=== PATIENT | male | born 1935 | race Caucasian/White ===

== ENCOUNTER 2020-01-23 11:54 | Day surgery (SDC) | payer MEDICARE, SELFPAY ==
[2020-01-22 13:40] VITALS: BMI 24.3
[2020-01-23] VITALS (8 sets, daily range): BP systolic 102–166; BP diastolic 57–91; PULSE 64–99; RESP 18; TEMP 36.3–37; O2SAT 96–100
--- NOTE | 2020-01-23 13:36 | FL_ITS ---
PROCEDURE: FL ERCP CLINICAL INDICATION: ABNORMAL DIAGNOSTIC SCAN COMPARISON: No exams were available for comparison FINDINGS: Fluoroscopy time: 3 minutes and 11 seconds There are no previous exams available at this institution for comparison. No international banker exam was performed. Pancreatic duct is visualized with contrast in normal in caliber. A wire is present within the common bile duct with some contrast in the proximal biliary tree. The common bile duct is poorly opacified. Please correlate with fluoroscopic findings. There is a collection of contrast in the right upper quadrant which could be due to gallbladder with stones. It appears a sphincterotomy was performed. IMPRESSION: Status post ERCP. Unremarkable appearing pancreatic duct. Common bile duct is not opacified. Please correlate with fluoroscopic findings Dictated by: Rodney Jacob MD 02/02/2020 20:34 Electronically signed by Rodney Jacob MD in [place] 02/02/2020 20:34
--- NOTE | 2020-01-23 13:57 | P.PN_ITS ---
[facility] Anesthesia Checklist - Patient Identification Patient Identification: Arm Band, Verbal (Name & ) - Structural Data Admitted From: Home Planned Operative Procedure/s: ERCP Consent for Planned Operative Procedure(s) Verified: Yes Verified Documents: Surgical Consent, History and Physical - NPO Status Verified Time NPO: 19:30 - Chart Verification Results Verified: None - Additional verifications Anesthesia Reactions: Yes (PONV) - Airway Assessment C-Spine Mobility Assessed: Yes TMJ Mobility Assessed: Yes Dentition: Dentures-good fit - Neurological Assessment Level of Consciousness: Awake, Alert, Appropriate, Follows Commands Hx Seizures: No Numbness or tingling in extremities: Yes (Left arm numbness) - Anesthesia Plan Anesthesia Risk discussed: Yes Anesthesia Plan: Verified ASA Class: II Anesthesia Type: MAC [facility] History I have reviewed the patient's past medical history: Yes Medical History: Reports:: Asthma, Cancer (skin cancer), Hypertension Denies:: Diabetes Mellitus Type 1, Diabetes Mellitus Type 2, Internal Pacemaker, MRSA, Seizures *Have you ever received a pneumonia vaccine?: Yes *Have you received a flu vaccine this season?: Yes Anesthesia experience/problems:: PONV Other Surgeries: Yes: Cholecystectomy, Hernia Repair, Sinus Surgery. No: Pacemaker Amputation: No Fractures: No - *Social History Educational Level: Completed High School Smoking Status: Unknown if ever smoked Alcohol Intake: never Substance Use Type: denies use *Occupational Status:: retired Housing: house Household Members: none *Travel in the last 8 weeks: None Family Hx:: No significant family history
--- NOTE | 2020-01-23 14:15 | HMH.PROC ---
[facility] Procedure Note Procedure Note:: ERCP procedure Report: Endoscopic retrograde cholangiopancreatography with biliary sphincterotomy, biliary balloon extraction and biliary stent placement Endoscopist: Nico Ring II, MD Referring Physician: Lamberto Morris MD Date of Procedure: January 23, 2020 Equipment: Olympus 180 side viewing endoscope duodenoscope Sedation: MAC sedation Indication: Mr. Mario is an 85-year-old gentleman with generalized abdominal pain and discomfort since early November 2019. He has lost 10 pounds. This is upper but across the mid abdomen and does not radiate. He has had some loss of appetite and nausea. His CT scan of the abdomen and pelvis showed bile duct dilation with 2 common bile duct stones or sludge or mass. Labs in the office did show ALT 37, alkaline phosphatase 312 and total bilirubin 1.1. The patient's amylase and lipase were 61 and 110 respectively (normal). The patient did have a subsequent MRCP that showed a common bile duct measuring 18 mm. There was a filling defect in the distal aspect of the CBD which measured 2 cm x 1.6 cm. ERCP was recommended. Procedure: Prior to the procedure, a history and physical exam was performed, and patient's medications and allergies were reviewed. The risks, benefits and alternatives of the sedation and procedure were discussed with the patient. All questions were answered and informed consent was obtained. The patient was brought to the fluoroscopic radiology room. Patient identification and proposed procedure were verified by the physician and the nurse. The patient was placed in a swimmer's position between left lateral decubitus and prone position and the scope was passed under direct vision. Throughout the procedure, the patient's blood pressure, pulse, and oxygen saturations were monitored continuously. The ERCP was accomplished without difficulty. The patient tolerated the procedure well. Findings: The side-viewing duodenal scope was passed directly into the upper esophagus and advanced to the second portion of the duodenum. The esophagus and stomach were grossly normal. There was some mild reactive gastropathy of the antrum. There was a periampullary diverticulum in the second portion of the duodenum. There was a bulging ampulla. The ampulla was angulated. Both the common bile duct and pancreatic duct were cannulated. The pancreatogram did show a 2 to 3 mm pancreatic duct with filling of the head body and a portion of the tail the gland. There were no strictures or ductular ectasias. The cholangiogram showed a 18 to 20 mm common bile duct with a distal CBD filling defect consistent with a large distal CBD stone with sludge. Initially, a generous biliary sphincterotomy was performed. Next, a 12 mm sweeping balloon was placed above the sludge and stone and most of this was swept out with the smaller balloon. Approximately 5 balloon sweeps yielded mostly semisolid sludge which was yellowish-brown and fragmented stones. After there was complete decompression of the biliary system, a 10 Luxembourger, 5 cm double-pigtail stent was deployed into the biliary system with excellent drainage and decompression. The procedure was then ended. The patient was given Indocin suppository 100 mg per rectum subsequent to ending procedure. Impression: 1. Choledocholithiasis with partial biliary obstruction status post biliary sphincterotomy, balloon extraction and 10 Luxembourger stent placement 2. Normal pancreatogram 3. Periampullary diverticulum Plan: I will discuss the findings with patient and family. I will have the patient return in 10 to 12 weeks with repeat cholangiogram and removal of biliary stent at that time to ensure complete clearance of the common bile duct.
== END 2020-01-23 15:52 | disposition home or self-care (01) ==
LOC: OUTP 11:58
PROVIDERS: Visit Provider Internal Medicine Gastroenterology
DX: K80.51 Calculus of bile duct without cholangitis or cholecystitis with obstruction (principal); K57.90 Diverticulosis of intestine, part unspecified, without perforation or abscess without bleeding; Z79.899 Other long term (current) drug therapy
CPT/HCPCS: 43264; 43274; 74330; C2617

== ENCOUNTER → 2020-04-01 12:54 | Outpatient (CLI) | payer MEDICARE, SELFPAY ==
[2020-04-01 15:34] LABS: Coronavirus 19 IgG Antibody Negative (Negative); Coronavirus 19 IgM Antibody Negative (Negative)
== END ==
PROVIDERS: Visit Provider Internal Medicine Gastroenterology
DX: Z01.818 Encounter for other preprocedural examination (principal); R93.3 Abnormal findings on diagnostic imaging of other parts of digestive tract
CPT/HCPCS: 36415; 86328

== ENCOUNTER 2020-04-02 11:41 | Day surgery (SDC) | payer MEDICARE, SELFPAY ==
[2020-03-29 16:43] VITALS: BMI 22.8
[2020-04-02] VITALS (9 sets, daily range): BP systolic 110–189; BP diastolic 65–99; PULSE 60–80; RESP 18–20; TEMP 36.4–36.8; O2SAT 98–100
--- NOTE | 2020-04-02 13:06 | FL_ITS ---
PROCEDURE: FL ERCP CLINICAL INDICATION: abnormal imaging Choledocholithiasis. Stent placement COMPARISON: FL ERCP from 01/23/2020 FINDINGS: A biliary stent was removed during the exam. Multiple images are submitted. A stone extraction was performed with a basket. There was incomplete filling of the common bile duct. IMPRESSION: Interval stent removal and stone extraction Dictated by: Rodney Jacob MD 04/06/2020 15:47 Electronically signed by Rodney Jacob MD in [place] 04/06/2020 15:47
--- NOTE | 2020-04-02 14:50 | HMH.PROC ---
[facility] Procedure Note Procedure Note:: ERCP procedure Report: Endoscopic retrograde cholangiopancreatography with stent removal and stone/basket extraction Endoscopist: Nico Ring II, MD Referring Physician: Lamberto Morris MD Date of Procedure: April 02, 2020 Equipment: Olympus 180 side viewing endoscope duodenoscope Sedation: MAC sedation Indication: Mr. Mario is an 85-year-old gentleman with an abnormal MRCP and CAT scan previously as well as an elevated alkaline phosphatase. He was having some generalized abdominal pain and discomfort since early November 2019 and had lost 10 pounds. He had ERCP with pa on January 23, 2020 and was found to have choledocholithiasis. There was a dilated biliary system to 18 to 20 mm. There was a lot of stones and sludge and a 10 Mexican 5 cm double-pigtail biliary stent was deployed. Since that time, the patient has done very well. He reports no abdominal complaints. He is here for biliary stent removal and complete clearance. Procedure: Prior to the procedure, a history and physical exam was performed, and patient's medications and allergies were reviewed. The risks, benefits and alternatives of the sedation and procedure were discussed with the patient. All questions were answered and informed consent was obtained. The patient was brought to the fluoroscopic radiology room. Patient identification and proposed procedure were verified by the physician and the nurse. The patient was placed in a swimmer's position between left lateral decubitus and prone position and the scope was passed under direct vision. Throughout the procedure, the patient's blood pressure, pulse, and oxygen saturations were monitored continuously. The ERCP was accomplished without difficulty. The patient tolerated the procedure well. Findings: The side-viewing duodenal scope was passed directly into the upper esophagus and advanced to the second portion of the duodenum. There was some mild reactive gastropathy. There was a periampullary diverticulum adjacent to the ampulla. The stent was identified and grasped with a snare and removed in a retrograde fashion out the oropharynx. Next, the scope was again advanced to the second portion of the duodenum. The common bile duct was selectively cannulated. The cholangiogram did show some sludge and a minor amount of filling defect in the mid and distal CBD. There was a very generous sphincterotomy from previously. A 9 to 12 mm sweeping balloon was utilized and there was some stony debris and sludge that was removed. Lastly, a 2 x 4 cm basket was deployed into the biliary system and there was a little bit of additional yield of stony debris with the basket. The biliary system was completely decompressed and the procedure was ended. The pancreatic duct was not cannulated intentionally. Impression: 1. Choledocholithiasis status post biliary stent removal and complete clearance of biliary system Plan: I do feel that the patient does have some slight increased risk of recurrent choledocholithiasis. I will discuss this with the patient and family. The patient has clinically much improved.
--- NOTE | 2020-04-02 14:58 | HMH.ANESCL ---
[facility] Anesthesia Checklist - Patient Identification Patient Identification: Arm Band - Structural Data Admitted From: Home Planned Operative Procedure/s: ercp Consent for Planned Operative Procedure(s) Verified: Yes Verified Documents: Surgical Consent, History and Physical - NPO Status Verified Time NPO: 00:00 - Additional verifications Anesthesia Reactions: Yes (PONV) - Airway Assessment C-Spine Mobility Assessed: Yes (mp2) TMJ Mobility Assessed: Yes Dentition: Dentures-good fit - Neurological Assessment Level of Consciousness: Awake, Alert - Anesthesia Plan Anesthesia Risk discussed: Yes Anesthesia Plan: Verified ASA Class: II Anesthesia Type: MAC [facility] History I have reviewed the patient's past medical history: Yes Medical History: Reports:: Asthma, Cancer (skin), Hypertension Denies:: Diabetes Mellitus Type 1, Diabetes Mellitus Type 2, Internal Pacemaker, MRSA, Seizures *Have you ever received a pneumonia vaccine?: Yes *Have you received a flu vaccine this season?: Yes Anesthesia experience/problems:: nac Other Surgeries: Yes: Cholecystectomy, Hernia Repair, Sinus Surgery. No: Pacemaker Amputation: No Fractures: No - *Social History Last grade of school completed: High school graduate Smoking Status: Former smoker Alcohol Intake: current Alcohol Intake Frequency:: 0-2 drinks per day Substance Use Type: denies use *Occupational Status:: retired Housing: house Household Members: spouse *Travel in the last 8 weeks: None Family Hx:: No significant family history
== END 2020-04-02 15:55 | disposition home or self-care (01) ==
LOC: OUTP 11:44
PROVIDERS: PCP Hospitalist; Visit Provider Internal Medicine Gastroenterology
DX: K80.50 Calculus of bile duct without cholangitis or cholecystitis without obstruction (principal); R93.3 Abnormal findings on diagnostic imaging of other parts of digestive tract; I10 Essential (primary) hypertension; K21.9 Gastro-esophageal reflux disease without esophagitis; Z85.828 Personal history of other malignant neoplasm of skin
CPT/HCPCS: 43264; 43275; 74330